=== PATIENT | female | born 1960 | race Caucasian/White ===

== ENCOUNTER 2017-10-30 23:59 | Observation (INO) | payer BC ==
[2017-10-31] MEDS ORDERED: MORPHINE SULFATE INJ 10 MG/ML VIAL IV ONE ×3 (00:21→02:19)
[2017-10-31] MEDS ORDERED: ONDANSETRON INJ 4 MG/2 ML VIAL IV ONE (00:21)
[2017-10-31] MEDS ORDERED: SODIUM CHLORIDE 0.9% 1000ML 1,000 ML ONE (00:26)
--- NOTE | 2017-10-31 00:47 | ED.PDOC ---
History of Present Illness - General Chief Complaint: Bite: Animal/Insect/Human Stated Complaint: snake bite to right foot Time Seen by Provider: 10/31/17 00:19 Source: patient, family Exam Limitations: no limitations - History of Present Illness Initial Comments: [place] a bite to R foot at base of great toe while walking into house. Didn't see what it was. Posey no sounds, but has seen copperhead snake recently Timing/Duration: 1 hour Severity: severe Improving Factors: nothing Worsening Factors: nothing Associated Symptoms: denies symptoms Allergies/Adverse Reactions: Allergies Sulfamethoxazole w/Trimethoprim [From Bactrim] Allergy (Verified 10/31/17 00:18) Home Medications: Ambulatory Orders NK [NK] 10/31/17 Review of Systems - Review of Systems Constitutional: Denies: chills, diaphoresis, fever EENTM: States: no symptoms reported Respiratory: Denies: short of breath, wheezing Cardiology: Denies: chest pain, palpitations Gastrointestinal/Abdominal: Denies: abdominal pain, diarrhea, nausea Genitourinary: States: no symptoms reported Musculoskeletal: States: other - R foot pain Endocrine: States: no symptoms reported Hematologic/Lymphatic: States: no symptoms reported Past Medical History (General) - Patient Medical History Hx Seizures: No Hx Stroke: No Hx Dementia: No Hx Asthma: No Hx of COPD: No Hx Cardiac Disorders: No Hx Congestive Heart Failure: No Hx Pacemaker: No Hx Hypertension: No Hx Thyroid Disease: No Hx Diabetes: No Hx Gastroesophageal Reflux: No Hx Renal Disease: No Hx of HIV: No Hx MRSA: No Surgical History: no surgical history - Vaccination History Hx Tetanus, Diphtheria Vaccination: No - Social History Hx Tobacco Use: No Hx Alcohol Use: Yes Family Medical History - Family History Mother Family History: Unknown Physical Exam - Physical Exam General Appearance: Alert, Obvious distress Eye Exam: bilateral normal Ears, Nose, Throat: hearing grossly normal, normal pharynx Neck: non-tender, full range of motion, supple Respiratory: chest non-tender, lungs clear, normal breath sounds Cardiovascular/Chest: normal peripheral pulses, regular rate, rhythm, no edema Gastrointestinal/Abdominal: normal bowel sounds, non tender, soft Extremity: pedal edema - swelling 1+ up to ankle with tenderness and increased warmth R foot with PW to dorsum at 1st MP, swelling Neurologic: alert, oriented x 3 Skin Exam: normal color, warm/dry Progress - EKG/XRAY/CT EKG: Sinus, no ST T wave changes Comments: rate 64, TX 144, QRS 88 Departure - Departure Clinical Impression: Snake envenomation Qualifiers: Encounter type: initial encounter Injury intent: accidental or unintentional Qualified Code(s): T63.001A - Toxic effect of unspecified snake venom, accidental (unintentional), initial encounter Disposition: Admit Patient Departure Forms: ED Discharge - Pt. Copy, Patient Portal Self Enrollment Instructions: DI for Animal Bites Home Medications: Ambulatory Orders NK [NK] 10/31/17 Decision To Admit - Decistion To Admit Decision to Admit Reason: Admit from ER - local pain and swelling without systemic sx's, minimal lab abnormals Decision to Admit Date: 10/31/17 Decision to Admit Time: 01:35
[2017-10-31] MEDS ORDERED: ceFAZolin SODIUM 1 GM in SODIUM CHL 0.9% 50ML MIN-BAG+ 50 ML IVPB ONE (01:36)
[2017-10-31] MEDS ORDERED: TETANUS,DIPHTHERIA,PERTUSSIS 1 EA SYG IM ONE (01:37)
[2017-10-31] MEDS ORDERED: SODIUM CHL 0.9% 50ML MIN-BAG+ 50 ML IVPB ONE (01:42)
[2017-10-31] MEDS ORDERED: ceFAZolin SODIUM 1 GM VIAL ONE (01:42)
--- NOTE | 2017-10-31 02:18 | HP ---
SUPERVISING PHYSICIAN: Iglesia Atkinson MD CHIEF COMPLAINT: Snake bite to right foot. HISTORY OF PRESENT ILLNESS: This is a 57-year-old female patient who was [place] and about 11:15 yesterday evening, she was carrying some items into her home and felt a bite to the proximal portion of her right great toe. She heard no sounds. She did not see what it was, but there have been copperheads killed in the area in the last day or so. She was in the Emergency Room approximately 30 minutes after she received the bite. There are two fang colin to the proximal portion of her right great toe. Her initial lab showed a WBC of 6.5, hemoglobin 14.1, hematocrit 40.1, platelet count 222. PT 11, INR 0.95, PT-T 28.4. Fibrinogen 182 and fibrinogen degradative products less than 10, D- Dimer 110. Sodium 131, potassium 3.9, chloride 96, carbon dioxide 26, BUN 6, creatinine 0.66. Liver enzymes were within normal limits. Cardiac enzymes were negative. The patient was admitted to the hospital. PAST MEDICAL HISTORY: None. PAST SURGICAL HISTORY: 1. Tonsillectomy at age 23. ALLERGIES: SULFA. SOCIAL HISTORY: She lives in [place]. She is a teacher. She denies any tobacco use. She does drink alcohol socially. She denies any illicit drug use. REVIEW OF SYSTEMS: Negative except for history of present illness and right lower leg pain and swelling. PHYSICAL EXAMINATION: VITAL SIGNS: Afebrile. Heart rate 68. Blood pressure 102/62. Respiratory rate 16. O2 saturation 93% on room air. GENERAL: This is a 57-year-old female who is lying in her hospital bed. She is in no acute distress. HEENT: Normocephalic, atraumatic. Pupils are equal and reactive. Oropharynx is clear. NECK: Supple without mass. RESPIRATORY: Essentially clear to auscultation bilaterally. CARDIOVASCULAR: Regular rate and rhythm. GASTROINTESTINAL: Abdomen is soft, nondistended, nontender. Bowel sounds are positive. EXTREMITIES: Left lower extremity reveals no cyanosis, clubbing or edema. Left pedal pulse +2. Right lower extremity reveals swelling from the toes up to mid-calf. They have been marked and nursing is measuring them. There are two fang colin noted to the proximal portion of her right great toe. Tenderness is noted to the right great toe as well as the right foot. Erythema is noted to the right foot that extends to the ankle. Right pedal pulse is +2. NEUROLOGIC: Awake, alert and oriented times three. SKIN: Warm and dry. LABORATORY: Followup labs show WBC 7.4, hemoglobin 13.2, hematocrit 38.7, platelet count 193. PT 11.3, INR 0.97. Fibrinogen 161, FDP less than 10. Sodium 134, potassium 3.7, chloride 102, carbon dioxide 25, BUN 6, creatinine 0.56. Liver enzymes are negative. All other labs and films have been reviewed via the EMR. IMPRESSION: Snake bite to right great toe, most likely a copperhead. PLAN: We will admit the patient to the hospital. I have consulted Dr. Hall. We will repeat her coagulation studies at 2 PM as well as in the morning. At this point, she is taking morphine. We will try to transition her to p.o. pain medications. I have instructed nursing to continue to measure her right leg and record it as well as keep the right leg elevated. Hopefully she can be discharged in the next day or so. We will continue to monitor the patient closely and follow as needed. Dr. Atkinson is the collaborating physician and available for consultation. #[id number] [facility]
[2017-10-31] MEDS ORDERED: SODIUM CHLORIDE 0.9% (FLUSH) 10 ML SYG IV PRN (04:18)
[2017-10-31] MEDS ORDERED: ALBUTEROL SULFATE 2.5 MG/3 ML VIAL NEB PRN (04:18)
[2017-10-31] MEDS ORDERED: ACETAMINOPHEN 325 MG TAB PO PRN (04:18)
[2017-10-31] MEDS ORDERED: ONDANSETRON INJ 4 MG/2 ML VIAL IV PRN (04:18)
[2017-10-31] MEDS ORDERED: IV SET AND CAP CHANGE INJ INJ SCH (04:30)
[2017-10-31] MEDS: SODIUM CHLORIDE 0.9% 1000ML 1,000 ML IVS PRN ×4 (04:39→21:07)
[2017-10-31] MEDS: MORPHINE SULFATE INJ 10 MG/ML VIAL IV PRN ×2 (05:17→08:10)
[2017-10-31] MEDS ORDERED: HYDROcodone 5MG/APAP 325MG 1 EA TAB PO PRN (16:03)
[2017-11-01 10:44] VITALS: BP 115/75; TEMP 98.4; O2SAT 100
--- NOTE | 2017-11-01 13:36 | DS ---
SUPERVISING PHYSICIAN: Iglesia Atkinson MD DISCHARGE DIAGNOSIS: 1. Snake bite to right great toe, most likely a copperhead. HISTORY OF PRESENT ILLNESS: This is a 57-year-old female patient who [place] and on the day prior to admission, she was carrying some items into her home and felt a bite to the proximal portion of her right great toe. She heard no sounds and saw no snake, but there were two puncture colin on her right great toe. Her had killed several copperheads in the last day or so. Approximately 30 minutes after she received the bite, she came to the Emergency Room. There are two fang colin to the proximal portion of her right great toe. Her initial lab showed a WBC of 6.5, hemoglobin 14.1, hematocrit 40 , platelet count 222. PT 11, INR 0.95, PT-T 28.4. Fibrinogen 182 and fibrinogen degradative products less than 10, D-Dimer 110. Sodium 131, potassium 3.9, chloride 96, carbon dioxide 26, BUN 6, creatinine 0.66. Liver enzymes were within normal limits. Cardiac enzymes were negative. The patient was admitted to the hospital. HOSPITAL COURSE: The right leg was elevated throughout her stay. He was initially given morphine for pain and transitioned to p.o. pain medications. The right leg was measured every 4 hours across the midfoot, the ankle, lower calf and mid calf and recorded. She initially had some swelling, but in the last 12 hours, the swelling has diminished. Her vital signs remained stable. Her hemoglobin and hematocrit were stable with her final being hemoglobin 13.2 and hematocrit 38.9. WBCs today were 5.4 with platelet count 193. Her coagulation studies remained stable with PT 11.2, INR 0.97, PT-T 27, fibrinogen 212, FDP less than 10. CMP was basically within normal limits. She has done some walking around in her room. She still has some pain, but it is not unbearable. At this point, she can be discharged home. DISCHARGE PLAN: The patient will be discharged in stable condition. She is to elevate her leg as much as possible over the next few days, to increase activity as tolerate, resume her previous diet. She has no home medications, but I instructed her to take NSAIDs for pain and I have also given her some tramadol as needed for pain. She is to followup with her primary care physician in [place] within the next 1 to 2 weeks. I have given her a copy of all her labs. She is to return to see her primary care physician or followup at an Emergency Room if there are any further problems or complications. DISCHARGE MEDICATIONS: 1. Tramadol. #[id number] [facility]
== END 2017-11-01 11:50 | disposition home or self-care (01) ==
LOC: ER 23:59 → MS 10-31 02:18
PROVIDERS: ADMIT Nurse Practitioner Acute Care; ATTEND Nurse Practitioner Acute Care
DX: T63.061A Toxic effect of venom of other North and South American snake, accidental (unintentional), initial encounter (principal); R60.0 Localized edema; Y92.018 Other place in single-family (private) house as the place of occurrence of the external cause; Z23 Encounter for immunization; Z88.2 Allergy status to sulfonamides
CPT/HCPCS: 90471; J0690; J2270 ×5; J2405; J7030 ×4; J7050; 90715; 85379; 82553; 80053 ×5; 85362 ×5; 36415 ×7; 85384 ×5; 81001; 85025 ×5; 82550; 85730 ×4; 85610 ×5; 84484; 94762; 93005; G0378